=== PATIENT | male | born 1960 | race Caucasian/White ===

== ENCOUNTER 2016-12-14 07:54 | Inpatient (IN) | payer OTHER, SELFPAY ==
[2016-12-08 15:42] LABS: WBC (NOT ORDERED) (RFLEX) 0 (0-5)
[2016-12-08 16:13] LABS: BASOPHILS 0.3 %; BASOPHILS ABSOLUTE 0.02 10/3/uL (0.0-0.16); EOSINOPHILS 1.3 %; EOSINOPHILS ABSOLUTE 0.09 10/3/uL (0.0-0.53); HEMATOCRIT 45.8 % (40.0-51.0); HEMOGLOBIN 16.3 g/dL (13.6-17.8); IMMATURE GRANULOCYTES 0.3 %; IMMATURE GRANULOCYTES ABSOLUTE 0.02 10/3/uL (0.0-0.11); LYMPHOCYTES 17.2 %; LYMPHOCYTES ABSOLUTE 1.17 10/3/uL (0.67-4.30); MANUAL DIFF NO %; MEAN CORPUS HGB CONC 35.6 g/dL (32.0-36.0); MEAN CORPUSCULAR HEMOGLOB 32.1 pg (26.0-34.0); MEAN CORPUSCULAR VOLUME 90.3 fL (80-100); MEAN PLATELET VOLUME 10.8 fL (9.2-13.0); MONOCYTES 6.5 %; MONOCYTES ABSOLUTE 0.44 10/3/uL (0.21-1.20); NEUTROPHILS 74.4 %; NEUTROPHILS ABSOLUTE 5.07 10/3/uL (2.02-8.40); PLATELET COUNT 198 10/3/uL (150-400); RBC DISTRIBUTION WIDTH 13.6 % (12.0-16.0); RED CELL COUNT 5.07 10/6/uL (4.7-6.1); WHITE BLOOD CELLS 6.8 10/3/uL (4.5-10.5)
[2016-12-08 16:16] LABS: ASCORBIC ACID (UR NOT ORDER) NEG (NEG); BILIRUBIN, URINE NEGATIVE (NEG); KETONE, URINE NEGATIVE (NEG); LEUKOCYTE ESTERASE(NOT OR NEG (NEG)
[2016-12-08 16:19] LABS: A/G RATIO 0.9 (0.7-1.9); ALBUMIN 3.6 G/DL (3.5-5.0); ALKALINE PHOSPHATASE 112 U/L (45-117); BUN (BLOOD UREA NITROGEN) 12 MG/DL (6-23); CALCIUM, SERUM 8.8 MG/DL (8.5-10.4); CHLORIDE, SERUM 112 MMOL/L (96-112); CO2 (CARBON DIOXIDE) 25 MMOL/L (24-34); CREATININE 1.04 MG/DL (0.70-1.30); GFR AFRICAN AMERICAN 94 ML/MIN (>=60); GFR NON AFRICAN AMERICAN 81 ML/MIN (>=60); GLOBULIN 3.8 G/DL (2.5-4.1); GLUCOSE, SERUM 94 MG/DL (60-99); POTASSIUM, SERUM 4.2 MMOL/L (3.5-5.3); SGOT(AST) 14 U/L (5-40); SGPT(ALT) 32 U/L (5-65); SODIUM, SERUM 140 MMOL/L (135-148); TOTAL BILIRUBIN 0.3 MG/DL (0-1.2); TOTAL PROTEIN 7.4 G/DL (6.0-8.5)
--- NOTE | ~2016-12-14 | OP ---
Record Of Operation [facility] [address] [place]. [address] NAME: SHIV MCHUGH : 64 STATUS : ADM IN PAT#: [id number] AGE: 56 ADM/REG DATE : 12/14/16 MR#: [id number] REPORT SERV DATE: 12/14/16 DICTATED BY: HEBER KRISHNAMURTHY JR. DATE: 12/14/16 REPORT STATUS : Draft TRANSCRIBED BY: MODMil DATE: 12/14/16 DATE OF PROCEDURE: 12/14/2016 PREOPERATIVE DIAGNOSES: Metastatic colon, colorectal cancer, right lower lobe status post previous radiation therapy x2, COPD with current smoking history, peripheral arterial disease, and history of colon resection with colostomy. POSTOPERATIVE DIAGNOSES: Metastatic colon, colorectal cancer, right lower lobe status post previous radiation therapy x2, COPD with current smoking history, peripheral arterial disease, and history of colon resection with colostomy. NAME OF OPERATION: Bronchoscopy, right thoracoscopy with right lower lobectomy, complete mediastinal node dissection, angelo stations 7, 9, 11R, and intercostal nerve block. SURGEON: Heber Krishnamurthy M.D. RESIDENT SURGEON: Dr. Narinder Sanon. MILLING PLANER OPERATOR: Patricio Marie. ANESTHESIA: General endotracheal. FINDINGS: The patient was noted to have no endobronchial lesions. There was a lot of mucus secretions as expected with him being a current smoker. These were evacuated. Upon exploration of the right chest, there was obvious tumor involving the basilar segment of the right lower lobe. The right lower lobe was very thickened and I did not think we could adequately resect this with just a wedge excision. The lung parenchyma was very dense likely from the radiation and also do not think the staplers were going to realistically be able to hold the tissue. Given the uncertainty of the boundaries of the tumor and/or whether there was other metastatic nodules within this lobe and because of the previous radiation, we elected to go ahead and do a right lower lobectomy. He had a well-developed fissure. We thought this was a safer operation and more complete from a cancer standpoint. Final pathology is pending. DETAILS OF OPERATION: After adequate general anesthesia, the patient was intubated. Bronchoscopy was performed noting no endobronchial lesions or tumors. There was no contraindication proceeding on with surgery. There were a lot of mucus secretions which were evacuated. A left-sided double-lumen endotracheal tube was then placed. The patient was then positioned in the left lateral decubitus position. The right chest was prepped and draped in a routine sterile fashion. A small incision was made overlying the lower intercostal space and separate anterior trocar incision was also made. Through these two incision sites, the above findings were noted. The chest was explored. The decision was made to go ahead and complete the right lower lobectomy. The inferior pulmonary ligament was taken down. The inferior pulmonary vein was identified and transected with the vascular stapler. The bronchus was divided with a ANGELICA stapler. The fissure was divided with multiple firings of ANGELICA stapler with tissue reinforcements. This included the pulmonary artery. The Record Of Operation [address] [address] NAME: SHIV MCHUGH DENNY : 64 STATUS : ADM IN [facility]#: [id number] AGE: 56 ADM/REG DATE : 12/14/16 MR#: [id number] REPORT SERV DATE: 12/14/16 DICTATED BY: HEBER KRISHNAMURTHY JR. DATE: 12/14/16 REPORT STATUS : Draft TRANSCRIBED BY: CHULA DATE: 12/14/16 specimen was placed within the specimen bag and withdrawn through the anterior trocar site. Nodes from the subcarinal, inferior pulmonary ligament, and hilar regions were then removed. Intercostal nerve block was performed with ropivacaine. A 20-Tajik chest tube was placed. The lung was reinflated. The trocar sites were closed with running Vicryl sutures. The skin was closed with running monofilament suture. A Dermabond dressing was applied and the procedure was terminated at this point. The patient's chest was thoroughly irrigated with sterile water prior to closing. A Dermabond dressing was applied and the procedure was terminated. The patient returned back to recovery room in stable condition. FISH/CHULA Heber Krishnamurthy Jr., M.D. / [id number] CC: Navjot Lazaro Jr., M.D. Marcus Wagner, MD Davey B. Daniel, M.D.
[~2016-12-14 07:54] MED LIST: *DENIES; ACET500CAP PO; ADVIL PO; ALEVE220 MG PO; CHANTIX0.5 PO; COLON HEALTH PO; ENSURE; IBU-200200 MG PO; LYRICA150 MG PO; METHATAB5B PO; NEUR300 PO; OXYIR5 MG PO; PERCOCET1 TA2 PO; SPIRIVA RESPIMAT INH; STOOL SOFTEN100 MG PO; VENTOLIN HFA INH
[2016-12-15 06:02] LABS: BASOPHILS 0.1 %; BASOPHILS ABSOLUTE 0.01 10/3/uL (0.0-0.16); EOSINOPHILS 0 %; HEMOGLOBIN 15.4 g/dL (13.6-17.8); IMMATURE GRANULOCYTES 0.1 %; IMMATURE GRANULOCYTES ABSOLUTE 0.01 10/3/uL (0.0-0.11); LYMPHOCYTES 5.4 %; LYMPHOCYTES ABSOLUTE 0.67 10/3/uL (0.67-4.30); MEAN CORPUS HGB CONC 34.2 g/dL (32.0-36.0); MEAN CORPUSCULAR HEMOGLOB 31.8 pg (26.0-34.0); MEAN PLATELET VOLUME 11.2 fL (9.2-13.0); MONOCYTES 3.5 %; MONOCYTES ABSOLUTE 0.44 10/3/uL (0.21-1.20); NEUTROPHILS 90.9 %; NEUTROPHILS ABSOLUTE 11.37 10/3/uL (2.02-8.40); PLATELET COUNT 157 10/3/uL (150-400); RBC DISTRIBUTION WIDTH 13.5 % (12.0-16.0); RED CELL COUNT 4.84 10/6/uL (4.7-6.1)
[2016-12-15 06:03] LABS: MANUAL DIFF NO %; WHITE BLOOD CELLS 12.5 10/3/uL (4.5-10.5)
[2016-12-15 06:14] LABS: BUN (BLOOD UREA NITROGEN) 14 MG/DL (6-23); CALCIUM, SERUM 8.9 MG/DL (8.5-10.4); CHLORIDE, SERUM 105 MMOL/L (96-112); CO2 (CARBON DIOXIDE) 24 MMOL/L (24-34); CREATININE 1.13 MG/DL (0.70-1.30); GFR AFRICAN AMERICAN 85 ML/MIN (>=60); GFR NON AFRICAN AMERICAN 73 ML/MIN (>=60); GLUCOSE, SERUM 132 MG/DL (60-99); POTASSIUM, SERUM 4.3 MMOL/L (3.5-5.3); SODIUM, SERUM 136 MMOL/L (135-148)
== END 2016-12-16 15:20 | disposition home health service (06) | DRG 165 ==
LOC: SDC/OF 07:54 → PACU 13:54 → 5NO 15:28
PROVIDERS: Thoracic Surgery (Cardiothoracic Vascular Surgery)
PROC: 07B74ZX Excision of Thorax Lymphatic, Percutaneous Endoscopic Approach, Diagnostic (ICD-10-PCS; 2016-12-14)
PROC: 3E0T3BZ Introduction of Anesthetic Agent into Peripheral Nerves and Plexi, Percutaneous Approach (ICD-10-PCS; 2016-12-14)
PROC: 0BTF4ZZ Resection of Right Lower Lung Lobe, Percutaneous Endoscopic Approach (ICD-10-PCS; principal; 2016-12-14 10:45)
DX: C78.01 Secondary malignant neoplasm of right lung (principal); J44.9 Chronic obstructive pulmonary disease, unspecified; F17.210 Nicotine dependence, cigarettes, uncomplicated; Z85.038 Personal history of other malignant neoplasm of large intestine; Z93.3 Colostomy status
CPT/HCPCS: 36415; 71020; 80048; 80053; 81001; 82962; 83036; 85025; 85610; 86850; 86900; 86901; 87641; 88305; 88307; 88309; 88313; 88341; 88342; 93005; 94640; A9270-GY; J0690; J1885; J2250; J2370; J2405; J2710; J2795; J3010